=== PATIENT | female | born 1995 | race Caucasian/White ===

== ENCOUNTER 2016-10-15 18:15 | Observation (INO) | payer MEDICAID ==
[~2016-10-15] VITALS: Ht 157.5 cm; Wt 65.8 kg
[2016-10-15] MEDS ORDERED: PREN-546 PO (19:09)
== END 2016-10-15 18:45 | disposition left against medical advice (07) ==
LOC: MLD 18:15
PROVIDERS: ADMIT Obstetrics & Gynecology; ATTEND Obstetrics & Gynecology
DX: O26.892 Other specified pregnancy related conditions, second trimester (principal); R10.9 Unspecified abdominal pain; Z3A.21 21 weeks gestation of pregnancy
CPT/HCPCS: G0378; G0379

== ENCOUNTER 2020-08-04 23:49 | Emergency (ER) | payer SELFPAY ==
[~2020-08-04] VITALS: Ht 157.5 cm; Wt 54.4 kg
[~2020-08-04 23:49] MED LIST: PREN-546 PO
[2020-08-04 23:56] VITALS: BP 109/61
--- NOTE | 2020-08-04 23:56 | NUR ---
TO BED AMBULATORY
--- NOTE | 2020-08-05 | NUR ---
PT PRESENTED TO ED C/O GENERALIZED ABD PAIN X 4 DAYS. 11/05 PAIN AND DESCRIBES IT "CRAMPING" FEELING. ABD IS FLAT, SOFT, ACTIVE BS, AND TENDERNESS TO TOUCH. A&OX4. +NAUSEA WITH NO VOMITTING. +DECREASE APPETITE CHANGE. LAST BM WAS 1HR AGO. NO BLOOD IN STOOL. +WATERY DIAHRREA. LAST INTAKE WAS AROUND 7PM LAST NIGHT AND PT ATE A VEGAN BURGER. PT HAD > 4 EPISODES OF DIAHRREA. NKDA. PMH: DENIES.
[2020-08-05] MEDS ORDERED: NACL 0.9% 1,000 ML IV ONE ×2 (01:30→01:50)
[2020-08-05] MEDS ORDERED: ONDANSETRON 4 MG/2 ML VIAL IVP ONE (01:30)
[2020-08-05] MEDS ORDERED: ACETAMINOPHEN EXTRA STRENGTH 500 MG TAB PO ONE (01:30)
[2020-08-05 01:35] LABS: BASOPHILS % (AUTO) 0.2 % (0.0-2.0); EOSINOPHILS # (AUTO) 0.1 K/uL (0-0.4); EOSINOPHILS % (AUTO) 2.1 % (0.0-4.0); HEMATOCRIT 41.1 % (36-48); HEMOGLOBIN 13.9 g/dL (12.0-16.0); LYMPHOCYTES # (AUTO) 1.6 K/uL (2.5-16.5); LYMPHOCYTES % (AUTO) 32.5 % (20.5-51.1); MEAN CORPUSCULAR HEMOGLOBIN 31 pg (27-31); MEAN CORPUSCULAR HGB CONC 34 g/dL (33-37); MEAN CORPUSCULAR VOLUME 90.6 fL (80-94); MONOCYTES # (AUTO) 0.8 K/uL (0.8-1.0); MONOCYTES % (AUTO) 16.4 % (1.7-9.3); NEUTROPHILS # (AUTO) 2.4 K/uL (1.8-7.7); NEUTROPHILS % (AUTO) 48.8 % (42.2-75.2); PLATELET COUNT (AUTO) 326 K/uL (140-450); RED BLOOD CELL COUNT(AUTO) 4.53 MIL/uL (4.20-5.40); RED CELL DISTRIBUTION WIDTH 13.1 % (11.6-13.7)
[2020-08-05 01:51] LABS: ALBUMIN 3.5 g/dL (3.4-5.0); ANION GAP 12.8 (8-16); CARBON DIOXIDE 27.8 mmol/L (21-32); CREATININE 0.7 mg/dL (0.6-1.3); POTASSIUM 3.6 mmol/L (3.5-5.1); TOTAL BILIRUBIN 0.4 mg/dL (0.0-1.0)
[2020-08-05] MEDS ORDERED: ONDA-24 SL (02:30)
[2020-08-05 03:03] VITALS: BP 97/57
== END 2020-08-05 03:03 | disposition home or self-care (01) ==
LOC: MED 23:49
DX: R11.2 Nausea with vomiting, unspecified (principal); R19.7 Diarrhea, unspecified; R03.1 Nonspecific low blood-pressure reading
CPT/HCPCS: 36415; 80053; 81002; 81025; 83605; 85025; 96361; 96374; 99283; J2405; J7030; 99284